=== PATIENT | female | born 1985 | race African-American/Black ===

== ENCOUNTER 2020-06-17 01:44 | Inpatient (IN) | payer SELFPAY ==
[2020-06-17] MEDS ORDERED: Acetaminophen 325 MG TAB PO PRN (03:46)
[2020-06-17] MEDS ORDERED: Ondansetron PF 4 MG/2 ML Vial IVP PRN (03:46)
--- NOTE | 2020-06-17 04:04 | PDOC.HHP ---
Hospitalist HPI - History of Present Illness Altered mental status History of Present Illness: PCP: Unknown The majority of the H&P was taken from ER records and documentation due to the patient's altered mental status. The patient is a 35-year-old female with a past medical history significant for bipolar schizophrenia and methamphetamine abuse that presents to the emergency department via EMS as a transfer from [facility] emergency room for the above complaint. Apparently, the patient was found walking [address] in [place], [place] by the [employer]'s department. The patient was confused. She did not know who she was, where she was going or what she was doing. EMS was called and the patient was brought to the hospital for further evaluation. At the hospital, CT brain negative for any acute process. Chest x-ray is negative for any acute process. The patient UA was consistent with UTI. Urine drug screen showed methamphetamines/amphetamines. Patient was given ciprofloxacin, 1 L normal saline and transferred to our hospital for further evaluation and care. ED Course: [facility]: Presented mildly tachycardic, with NL BP, RR, SPO2, afebrile. CT brain no acute process CXR negative UA nitrite, 4+ bacteria, leukocytes UDS methamphetamines/amphetamines WBC 8.7, hCG negative Medications: Ciprofloxacin 1 L normal saline Hospitalist ROS - Review of Systems ROS unobtainable: due to mental status All other systems reviewed; all pertinent +/- noted in HPI/Subj - Medication Medications: None Allergies: NKDA Hospitalist History - Past Medical History Source: RN notes reviewed, old records Cardiac: reports: no pertinent history Pulmonary: reports: no pertinent history Psych: reports: Addictions (PCP: Amphetamines/methamphetamines), Bipolar, Schizophrenia - Past Surgical History Other Surgical History: Unable to obtain due to patient's altered mental status - Family History Other Family History: Unable to obtain due to patient's altered mental status - Social History Smoking Status: Unknown if ever smoked Drugs: reports: methamphetamine Living Situation: Other (Unknown due to patient's altered mental status) Occupation: Unknown due to patient's altered mental status Activity level: independent ambulation - Exam General Appearance: NAD, awake alert. negative: ill appearing Eye: PERRL ENT: normocephalic atraumatic, dry oral mucosa Neck: supple, no lymphadenopathy Heart: RRR, no murmur, no gallops, no rubs, normal peripheral pulses Respiratory: CTAB, no wheezes, no rales, no ronchi, normal chest expansion, no tachypnea Gastrointestinal: soft, non-tender, normal bowel sounds, no guarding, no rigidity Extremities: no cyanosis, no edema Skin: no rashes Neurological: cranial nerve grossly intact, no focal deficits Musculoskeletal: normal tone, normal strength Psychiatric: normal affect Psychiatric - other findings: Alert, confused, follows commands Hospitalist Results - Radiology Interpretation CT scan - head Status: pending Chest x-ray Status: pending Hospitalist H&P A/P - Problem (1) AMS (altered mental status) Code(s): R41.82 - ALTERED MENTAL STATUS, UNSPECIFIED Status: Acute (2) UTI (urinary tract infection) Status: Acute (3) Hyperthyroidism Code(s): E05.90 - THYROTOXICOSIS, UNSP WITHOUT THYROTOXIC CRISIS OR STORM Status: Acute (4) Methamphetamine abuse Code(s): F15.10 - OTHER STIMULANT ABUSE, UNCOMPLICATED Status: Acute (5) Microcytic anemia Code(s): D50.9 - IRON DEFICIENCY ANEMIA, UNSPECIFIED Status: Acute - Plan Plan: Patient with bipolar/schizophrenia and methamphetamine abuse presents for AMS. UDS positive methamphetamines. UA consistent UTI. #AMS Likely multifactorial. History bipolar/schizophrenia, possibly noncompliant History methamphetamine abuse Upon examination, patient confused but cooperative, NAD CT brain no acute process. UA consistent for UTI. #UTI Given ciprofloxacin at [facility]. Start Rocephin. IV fluids. Send urine for culture. #Hyperthyroidism Heart rate WNL. Check free T4/free T3. #Methamphetamine abuse UDS positive methamphetamines #Microcytic anemia Hemoglobin 11.1, hematocrit 35.4 No overt signs of bleeding. Check iron studies, reticulocyte count, folate/B12. SCDs for DVT prophylaxis. No GI prophylaxis. CODE STATUS full code. Discussed case with attending physician, Dr Burton, agrees with plan of care.
[2020-06-17 05:25] LABS: Reticulocyte Count 1.2 % (0.5-1.5)
[2020-06-17 05:26] LABS: #Eosinphils 0.3 thou/uL (0.0-0.7); #Lymphocytes 2.6 thou/uL (1.20-3.40); #Monocytes 0.6 thou/uL (0.11-0.59); %Basophils 0.3 % (0.0-1.0); %Eosinophils 4.1 % (0.0-10.0); %Lymphocytes 34.3 % (21.0-51.0); %Monocytes 7.9 % (0.0-10.0); %Neutrophils 53.4 % (42.0-75.0); Hemoglobin 9.6 g/dL (12.0-16.0); Mean Corpuscular HGB CONC 31.2 g/dL (32.0-36.0); Mean Corpuscular Hemoglobin 25.8 pg (27.0-31.0); Mean Corpuscular Volume 82.6 fL (78.0-98.0); Mean Platelet Volume 7.9 fL (7.4-10.4); Platelet Count 352 thou/uL (130-400); Red Blood Cell (RBC) Count 3.73 mill/uL (4.20-5.40); White Blood Cell (WBC) Count 7.6 thou/uL (4.8-10.8)
[2020-06-17 05:42] VITALS: BMI 23.8
[2020-06-17 05:53] LABS: Anion Gap 12 mmol/L (10-20); BUN (Urea Nitrogen) 14 mg/dL (7.0-18.7); Calc. Creatinine Clearance 100 mL/min (70-130); Calcium 8.4 mg/dL (7.8-10.44); Carbon Dioxide 24 mmol/L (22-29); Chloride 107 mmol/L (98-107); Glucose 80 mg/dL (70-105); Iron 18 ug/dL (50-170); Iron 23 ug/dL (50-170); Iron Binding Capacity, Total 311 mcg/dL (265-497); Iron Binding Capacity, Total 314 mcg/dL (265-497); Potassium 3.9 mmol/L (3.5-5.1); Sodium 139 mmol/L (136-145)
[2020-06-17] MEDS: cefTRIAXone\\ROCEPHIN 1 GM in Sodium Chloride 0.9% 100 ML IVPB SCH (05:58)
[2020-06-17] MEDS: Sodium Chloride 0.9% 1,000 ML IV SCH ×2 (05:59→19:54)
[2020-06-17 06:18] LABS: Ferritin 11.05 ng/mL (10-291); Free T4 (Free Thyroxine) 1.06 ng/dL (0.70-1.48)
--- NOTE | 2020-06-17 13:11 | PDOC.BPN ---
- Brief Progress Note Encounter Date: 06/17/20 Encounter Time: 13:10 This is a 35-year-old woman who was admitted overnight due to altered mental status. Reportedly she was found by the [employer]'s department wandering down on the [place]. The patient has no recollection on how she got to the hospital. She is awake and alert but not oriented. There is no information about family history. The patient does not know her name. She was found to have methamphetamines in her urine drug screen. She also has evidence of urinary tract infection. She may benefit from formal evaluation by a psychiatrist. This can be arranged when she is medically stable. I have asked case management to consult [facility] to screen this woman. Further recommendations pending.
[2020-06-17 14:22] LABS: SARS-CoV-2 PCR by NAA Not Detected (NotDetected)
[2020-06-18] MEDS: cefTRIAXone\\ROCEPHIN 1 GM in Sodium Chloride 0.9% 100 ML IVPB SCH (05:18)
[2020-06-18] MEDS: Sodium Chloride 0.9% 1,000 ML IV SCH (10:12)
[2020-06-18] MEDS: Ondansetron ODT 4 MG TAB PO PRN ×2 (12:26→19:29)
--- NOTE | 2020-06-18 13:18 | PDOC.HOSPP ---
- Subjective Encounter Date: 06/18/20 Encounter Time: 12:15 Subjective: lethargic, responds to verbal questions says she didn't know she was meth +ve on admission on drug screen (not a regular user?) - Objective Vital Signs & Weight: Vital Signs (12 hours) Temp Pulse Resp BP BP Pulse Ox 06/18/20 08:17 98 06/18/20 07:39 98.2 F 80 16 125/58 L 98 06/18/20 06:38 98 F 90 16 141/73 H 97 Weight Weight 143 lb 4 oz I&O: 06/17/20 06/18/20 06/19/20 06:59 06:59 06:59 Intake Total 250 1814 Balance 250 1814 Result Diagrams: 06/17/20 05:03 06/17/20 05:03 Hospitalist ROS - Medication Medications: Active Medications Generic Name Dose Route Start Last Admin Trade Name Freq PRN Reason Stop Dose Admin Acetaminophen 650 mg 06/17/20 03:46 06/17/20 19:55 Acetaminophen 325 Mg Tab PO 650 mg Q4H PRN Administration Headache/Fever/Mild Pain (1-3) Ondansetron HCl 4 mg 06/17/20 03:46 06/18/20 12:26 Ondansetron Odt 4 Mg Tab PO 4 mg Q6H PRN Administration Nausea/Vomiting Ondansetron HCl 4 mg 06/17/20 03:46 06/18/20 05:16 Ondansetron Pf 4 Mg/2 Ml Vial IVP 4 mg Q6H PRN Administration Nausea/Vomiting Sodium Chloride 10 ml 06/17/20 03:46 06/17/20 05:56 Flush - Normal Saline 10 Ml Syringe IVF 10 ml PRN PRN Administration Saline Flush - Exam Eye: PERRL, anicteric sclera ENT: no oropharyngeal lesions, moist mucosa Neck: supple, no JVD Heart: RRR, no murmur Respiratory: no wheezes, no rales Gastrointestinal: soft, non-tender, non-distended, normal bowel sounds Extremities: no cyanosis, no edema Neurological: cranial nerve grossly intact, no focal deficits Hosp A/P (1) AMS (altered mental status) Code(s): R41.82 - ALTERED MENTAL STATUS, UNSPECIFIED Status: Acute Qualifiers: Altered mental status type: delirium Qualified Code(s): R41.0 - Disorientation, unspecified (2) Methamphetamine abuse Code(s): F15.10 - OTHER STIMULANT ABUSE, UNCOMPLICATED Status: Chronic (3) Microcytic anemia Code(s): D50.9 - IRON DEFICIENCY ANEMIA, UNSPECIFIED Status: Chronic (4) UTI (urinary tract infection) Status: Acute Qualifiers: Urinary tract infection type: acute cystitis Hematuria presence: without hematuria Qualified Code(s): N30.00 - Acute cystitis without hematuria - Plan is slowly returning to her baseline, still a bit lethargic had 3 bm's from am (semisolid per staff), also started to have her monthly periods is eating well per staff cipro for uti to ambulate as tolerated dc plan in am denies drug use, not sure if she is homeless, will await to get more answers in am from her before calling family given the circumstances she was brought here.
[2020-06-18] MEDS: Ciprofloxacin 500 MG TAB PO SCH (19:25)
[2020-06-19] MEDS: Ciprofloxacin 500 MG TAB PO SCH ×2 (05:14→20:28)
[2020-06-19] MEDS: Ondansetron ODT 4 MG TAB PO PRN (05:14)
[2020-06-19 08:14] LABS: #Eosinphils 0.4 thou/uL (0.0-0.7); #Lymphocytes 2.5 thou/uL (1.20-3.40); #Monocytes 0.4 thou/uL (0.11-0.59); %Basophils 0.3 % (0.0-1.0); %Eosinophils 5.5 % (0.0-10.0); %Lymphocytes 34.6 % (21.0-51.0); %Monocytes 5.6 % (0.0-10.0); Hemoglobin 10.5 g/dL (12.0-16.0); Mean Corpuscular HGB CONC 31.6 g/dL (32.0-36.0); Mean Corpuscular Hemoglobin 26.6 pg (27.0-31.0); Platelet Count 379 thou/uL (130-400); RBC Distribution Width 15.8 % (11.5-14.5); Red Blood Cell (RBC) Count 3.94 mill/uL (4.20-5.40); White Blood Cell (WBC) Count 7.3 thou/uL (4.8-10.8)
[2020-06-19 08:27] LABS: ALT (SGPT) 13 U/L (8-55); AST (SGOT) 16 U/L (5-34); Albumin 3.4 g/dL (3.5-5.0); Alkaline Phosphatase 56 U/L (40-110); Anion Gap 12 mmol/L (10-20); BUN (Urea Nitrogen) 7 mg/dL (7.0-18.7); Bilirubin, Total 0.2 mg/dL (0.2-1.2); Calc. Creatinine Clearance 108 mL/min (70-130); Calcium 8.4 mg/dL (7.8-10.44); Carbon Dioxide 20 mmol/L (22-29); Chloride 107 mmol/L (98-107); Globulin 2.9 g/dL (2.4-3.5); Glucose 92 mg/dL (70-105); Protein, Total 6.3 g/dL (6.0-8.3); Sodium 135 mmol/L (136-145)
--- NOTE | 2020-06-19 14:13 | PDOC.HOSPP ---
- Subjective Encounter Date: 06/19/20 Encounter Time: 13:15 Subjective: awake, not in distress thinks she is in [place] and wants me to take to a barbed fencing area says she has no parents or children is ambulating to bathroom, is tolerating oral diet - Objective Vital Signs & Weight: Vital Signs (12 hours) Temp Pulse Resp BP Pulse Ox 06/19/20 11:42 97.5 F L 79 16 117/64 98 06/19/20 08:00 98.4 F 79 16 126/76 97 Weight Weight 143 lb 4 oz I&O: 06/18/20 06/19/20 06/20/20 06:59 06:59 06:59 Intake Total 1814 900 Balance 1814 900 Result Diagrams: 06/19/20 07:42 06/19/20 07:42 Hospitalist ROS - Medication Medications: Active Medications Generic Name Dose Route Start Last Admin Trade Name Freq PRN Reason Stop Dose Admin Acetaminophen 650 mg 06/17/20 03:46 06/17/20 19:55 Acetaminophen 325 Mg Tab PO 650 mg Q4H PRN Administration Headache/Fever/Mild Pain (1-3) Ciprofloxacin 500 mg 06/18/20 20:00 06/19/20 05:14 Ciprofloxacin 500 Mg Tab PO 500 mg 0600,2000 CAL Administration Ondansetron HCl 4 mg 06/17/20 03:46 06/19/20 05:14 Ondansetron Odt 4 Mg Tab PO 4 mg Q6H PRN Administration Nausea/Vomiting Ondansetron HCl 4 mg 06/17/20 03:46 06/18/20 05:16 Ondansetron Pf 4 Mg/2 Ml Vial IVP 4 mg Q6H PRN Administration Nausea/Vomiting Sodium Chloride 10 ml 06/17/20 03:46 06/17/20 05:56 Flush - Normal Saline 10 Ml Syringe IVF 10 ml PRN PRN Administration Saline Flush - Exam General Appearance: awake alert Eye: PERRL, anicteric sclera ENT: no oropharyngeal lesions, moist mucosa Neck: supple, no JVD Heart: RRR, no murmur Respiratory: no wheezes, no rales Gastrointestinal: soft, non-tender, non-distended, normal bowel sounds Extremities: no cyanosis, no edema Neurological: cranial nerve grossly intact, no focal deficits Psychiatric - other findings: has delusions+ Hosp A/P (1) Methamphetamine abuse Code(s): F15.10 - OTHER STIMULANT ABUSE, UNCOMPLICATED Status: Chronic (2) Microcytic anemia Code(s): D50.9 - IRON DEFICIENCY ANEMIA, UNSPECIFIED Status: Chronic (3) UTI (urinary tract infection) Status: Acute Qualifiers: Urinary tract infection type: acute cystitis Hematuria presence: without hematuria Qualified Code(s): N30.00 - Acute cystitis without hematuria (4) Acute psychosis Code(s): F23 - BRIEF PSYCHOTIC DISORDER Status: Acute (5) Schizoaffective disorder Code(s): F25.9 - SCHIZOAFFECTIVE DISORDER, UNSPECIFIED Status: Chronic Qualifiers: Schizoaffective disorder type: bipolar Qualified Code(s): F25.0 - Schizoaffective disorder, bipolar type (6) Bipolar disorder Code(s): F31.9 - BIPOLAR DISORDER, UNSPECIFIED Status: Chronic Qualifiers: Active/Remission status: remission status unspecified Qualified Code(s): F31.9 - Bipolar disorder, unspecified - Plan has delusions, d/w mother over phone who lives in the same town as her in [place], pt lives in a trailer alone, she had 5 children but none are with her and mom did not divulge where they are, she uses meth often, is not compliant with psych meds and she uses [facility] in [place], she used to follow with [facility] there per mom. I have given brief updates to her and she is aware patient may go to inpt psychiatric unit for optimization of meds for her schizoaffective disorder with current delusions. is eating well per staff cipro for uti to ambulate as tolerated may dc anytime to inpt pschiatric unit if accepted. [facility] has evaluated patient and have recommended inpt pscy unit stay
[2020-06-19] MEDS ORDERED: Ziprasidone 20 MG CAP PO SCH (14:30)
[2020-06-20] MEDS: Ciprofloxacin 500 MG TAB PO SCH ×2 (05:21→21:30)
[2020-06-20] MEDS: Benztropine 1 MG TAB PO SCH (08:31)
[2020-06-20] MEDS: Ziprasidone 20 MG CAP PO SCH (08:32)
--- NOTE | 2020-06-20 14:00 | PDOC.HOSPP ---
- Subjective Encounter Date: 06/20/20 Encounter Time: 12:00 Subjective: no complaints, knows she is in the hospital this am but doesn't know the place she cant tell me where she lives, who her mom is, children etc is walking to restroom and back, tolerating oral diet - Objective Vital Signs & Weight: Vital Signs (12 hours) Temp Pulse Resp BP Pulse Ox 06/20/20 08:12 98.0 F 76 16 122/66 98 Weight Weight 143 lb 4 oz I&O: 06/19/20 06/20/20 06/21/20 06:59 06:59 06:59 Intake Total 900 600 850 Balance 900 600 850 Result Diagrams: 06/19/20 07:42 06/19/20 07:42 Hospitalist ROS - Medication Medications: Active Medications Generic Name Dose Route Start Last Admin Trade Name Freq PRN Reason Stop Dose Admin Acetaminophen 650 mg 06/17/20 03:46 06/17/20 19:55 Acetaminophen 325 Mg Tab PO 650 mg Q4H PRN Administration Headache/Fever/Mild Pain (1-3) Benztropine Mesylate 1 mg 06/20/20 09:00 06/20/20 08:31 Benztropine 1 Mg Tab PO 1 mg DAILY THA Administration Ciprofloxacin 500 mg 06/18/20 20:00 06/20/20 05:21 Ciprofloxacin 500 Mg Tab PO 500 mg 06,1999 THA Administration Ondansetron HCl 4 mg 06/17/20 03:46 06/19/20 05:14 Ondansetron Odt 4 Mg Tab PO 4 mg Q6H PRN Administration Nausea/Vomiting Ondansetron HCl 4 mg 06/17/20 03:46 06/18/20 05:16 Ondansetron Pf 4 Mg/2 Ml Vial IVP 4 mg Q6H PRN Administration Nausea/Vomiting Sodium Chloride 10 ml 06/17/20 03:46 06/17/20 05:56 Flush - Normal Saline 10 Ml Syringe IVF 10 ml PRN PRN Administration Saline Flush Ziprasidone 20 mg 06/20/20 08:00 06/20/20 08:32 Ziprasidone 20 Mg Cap PO 20 mg QAM-WM THA Administration - Exam General Appearance: awake alert Eye: PERRL, anicteric sclera ENT: no oropharyngeal lesions, moist mucosa Neck: supple, no JVD Heart: RRR, no murmur Respiratory: no wheezes, no rales, no ronchi Gastrointestinal: soft, non-tender, non-distended, normal bowel sounds Extremities: no cyanosis, no edema Neurological: cranial nerve grossly intact, no focal deficits Hosp A/P (1) Acute psychosis Code(s): F23 - BRIEF PSYCHOTIC DISORDER Status: Acute (2) Methamphetamine abuse Code(s): F15.10 - OTHER STIMULANT ABUSE, UNCOMPLICATED Status: Chronic (3) Microcytic anemia Code(s): D50.9 - IRON DEFICIENCY ANEMIA, UNSPECIFIED Status: Chronic (4) UTI (urinary tract infection) Status: Acute Qualifiers: Urinary tract infection type: acute cystitis Hematuria presence: without hematuria Qualified Code(s): N30.00 - Acute cystitis without hematuria (5) Schizoaffective disorder Code(s): F25.9 - SCHIZOAFFECTIVE DISORDER, UNSPECIFIED Status: Chronic Qualifiers: Schizoaffective disorder type: bipolar Qualified Code(s): F25.0 - Tha izoaffective disorder, bipolar type (6) Bipolar disorder Code(s): F31.9 - BIPOLAR DISORDER, UNSPECIFIED Status: Chronic Qualifiers: Active/Remission status: remission status unspecified Qualified Code(s): F31.9 - Bipolar disorder, unspecified - Plan has delusions, d/w mother over phone who lives in the same town as her in [place], pt lives in a trailer alone, she had 5 children but none are with her and mom did not divulge where they are, she uses meth often, is not compliant with psych meds and she uses [facility] in [place], she used to follow with [facility] there per mom. I have given brief updates to her and she is aware patient may go to inpt psychiatric unit for optimization of meds for her schizoaffective disorder with current delusions on 06/19/2020. is eating well per staff cipro for uti, started on geodon from 06/19/2020 along with cogentin, her delusions have come down a bit but is not aware of her family or children or home whereabouts. to ambulate as tolerated may dc anytime to inpt pschiatric unit if accepted. [facility] has evaluated patient and have recommended inpt pscyh unit stay
[2020-06-20] MEDS: Ferrous Sulfate 325 MG TAB PO SCH (19:16)
[2020-06-20] MEDS ORDERED: Lorazepam 2 MG/ML VIAL SLOW IVP PRN (19:32)
[2020-06-21] MEDS ORDERED: Loperamide HCl 2 MG CAP PO SCH (00:30)
[2020-06-21] MEDS: Ciprofloxacin 500 MG TAB PO SCH (06:16)
[2020-06-21] MEDS: Benztropine 1 MG TAB PO SCH (08:18)
[2020-06-21] MEDS: Ziprasidone 20 MG CAP PO SCH (08:19)
[2020-06-21] MEDS: Ferrous Sulfate 325 MG TAB PO SCH ×2 (08:19→17:54)
[2020-06-21 08:23] VITALS: BP 116/55; TEMP 98
[2020-06-21] MEDS ORDERED: Folic Acid 1 MG TAB PO SCH (09:00)
[2020-06-21] MEDS ORDERED: Multivitamin W/ Minerals 1 TAB PO SCH (09:00)
--- NOTE | 2020-06-21 14:13 | PDOC.HOSPP ---
- Subjective Encounter Date: 06/21/20 Encounter Time: 12:30 Subjective: is oriented well this am says she used to see with [facility] (last seen her >1 yr back), was on 4 meds including gabapentin, tegretol and 2 more that she cant remember (off meds from 1 yr, they made her put on weight so she dc'd) is ambulating in room had loose stool yesterday but no nausea knows she is in [facility], her home county and town, 5 children with their dad, mom lives near her in [place] etc. she wants to go home she denies using drugs - Objective Vital Signs & Weight: Vital Signs (12 hours) Temp Pulse BP Pulse Ox 06/21/20 08:00 98.0 F 78 116/55 L 99 Weight Weight 143 lb 4 oz I&O: 06/20/20 06/21/20 06/22/20 06:59 06:59 06:59 Intake Total 600 1970 Balance 600 1969 Result Diagrams: 06/19/20 07:42 06/19/20 07:42 Hospitalist ROS - Medication Medications: Active Medications Generic Name Dose Route Start Last Admin Trade Name Freq PRN Reason Stop Dose Admin Acetaminophen 650 mg 06/17/20 03:46 06/17/20 19:55 Acetaminophen 325 Mg Tab PO 650 mg Q4H PRN Administration Headache/Fever/Mild Pain (1-3) Benztropine Mesylate 1 mg 06/20/20 09:00 06/21/20 08:18 Benztropine 1 Mg Tab PO 1 mg DAILY CAL Administration Ciprofloxacin 500 mg 06/18/20 20:00 06/21/20 06:16 Ciprofloxacin 500 Mg Tab PO 500 mg 599,1999 CAL Administration Ferrous Sulfate 325 mg 06/20/20 17:00 06/21/20 08:19 Ferrous Sulfate 325 Mg Tab PO 325 mg BID- CAL Administration Folic Acid 1 mg 06/21/20 09:00 06/21/20 08:18 Folic Acid 1 Mg Tab PO 1 mg DAILY CAL Administration Iron/Minerals/Multivitamins 1 tab 06/21/20 09:00 06/21/20 08:19 Multivitamin W/ Minerals 1 Tab PO 1 tab DAILY CAL Administration Ondansetron HCl 4 mg 06/17/20 03:46 06/19/20 05:14 Ondansetron Odt 4 Mg Tab PO 4 mg Q6H PRN Administration Nausea/Vomiting Ondansetron HCl 4 mg 06/17/20 03:46 06/18/20 05:16 Ondansetron Pf 4 Mg/2 Ml Vial IVP 4 mg Q6H PRN Administration Nausea/Vomiting Sodium Chloride 10 ml 06/17/20 03:46 06/17/20 05:56 Flush - Normal Saline 10 Ml Syringe IVF 10 ml PRN PRN Administration Saline Flush Ziprasidone 20 mg 06/20/20 08:00 06/21/20 08:19 Ziprasidone 20 Mg Cap PO 20 mg QAM-WM [facility] Administration Hospitalist Exam Vitals: Vital Signs (12 hours) Temp Pulse BP Pulse Ox 06/21/20 08:00 98.0 F 78 116/55 L 99 Weight Weight 143 lb 4 oz General Appearance: awake alert Eye: PERRL, anicteric sclera ENT: no oropharyngeal lesions, moist mucosa Neck: supple, no JVD Heart: RRR, no murmur Respiratory: no wheezes, no rales Gastrointestinal: soft, non-tender, non-distended, normal bowel sounds Extremities: no cyanosis, no edema Neurological: cranial nerve grossly intact, no focal deficits Hosp A/P (1) Acute psychosis Code(s): F23 - BRIEF PSYCHOTIC DISORDER Status: Resolved (2) Methamphetamine abuse Code(s): F15.10 - OTHER STIMULANT ABUSE, UNCOMPLICATED Status: Chronic (3) Microcytic anemia Code(s): D50.9 - IRON DEFICIENCY ANEMIA, UNSPECIFIED Status: Chronic (4) UTI (urinary tract infection) Status: Acute Qualifiers: Urinary tract infection type: acute cystitis Hematuria presence: without hematuria Qualified Code(s): N30.00 - Acute cystitis without hematuria (5) Schizoaffective disorder Code(s): F25.9 - SCHIZOAFFECTIVE DISORDER, UNSPECIFIED Status: Chronic Qualifiers: Schizoaffective disorder type: bipolar Qualified Code(s): F25.0 - Schizoaffective disorder, bipolar type (6) Bipolar disorder Code(s): F31.9 - BIPOLAR DISORDER, UNSPECIFIED Status: Chronic Qualifiers: Active/Remission status: remission status unspecified Qualified Code(s): F31.9 - Bipolar disorder, unspecified - Plan this morning she is oriented, not suicidal or homicidal, wants to go home, will ask [facility] to re-evaluate and see if she can be dc'd home with a safety plan. is not compliant with psych meds and she uses [facility] pharmacy in [place], she used to follow with [facility] there per mom. I have given brief updates to her and she is aware patient may go to inpt psychiatric unit for optimization of meds for her schizoaffective disorder. is eating well per staff sita for uti, started on geodon from 06/19/2020 along with cogentin. to ambulate as tolerated may dc anytime to inpt pschiatric unit if accepted or to home if cleared by MH.
--- NOTE | 2020-06-22 14:54 | DIS ---
DATE OF ADMISSION: 06/17/2020 DATE OF DISCHARGE: 06/21/2020 DISCHARGE DISPOSITION: Home with close [facility] followup. PRIMARY DISCHARGE DIAGNOSIS: Brief episode of acute psychosis secondary to underlying schizoaffective disorder, not on any medication, and methamphetamine usage. SECONDARY DISCHARGE DIAGNOSES: Urinary tract infection; iron deficiency anemia; schizoaffective disorder, bipolar disorder, not on any medication for almost a year now. PROCEDURES DONE DURING HOSPITALIZATION: CT brain without contrast on admission showed no acute intracranial abnormality. Chest x-ray done showed no active intrathoracic abnormality. H and H 10 and 33, MCV 84, platelet count 379. BUN 7, creatinine 0.7. Serum iron 18, ferritin 11. Folic acid 6.40. Free T4 1.0, free T3 of 3.0. Urine test negative. Urine drug screen was positive for amphetamine and methamphetamines. Plasma alcohol less than 10. COVID-19 PCR was not detected on 06/17/2020. DISCHARGE MEDICATIONS: 1. Ciprofloxacin 500 mg twice daily for another 5 days. 2. Cogentin 1 mg p.o. daily. 3. Ferrous sulfate 325 mg p.o. daily. 4. Folic acid 1 mg p.o. daily. 5. Geodon 20 mg p.o. daily. 6. Multivitamin 1 tablet once daily. ALLERGIES: NO KNOWN DRUG ALLERGIES. DISCHARGE PLAN: The patient to follow up with [facility] and her primary psychiatrist, Dr. Kline, in 1 to 2 weeks. BRIEF COURSE DURING HOSPITALIZATION: The patient initially got admitted on the after she was brought to emergency room by [employer] as she was walking on the [place] [address] in [place]. Her initial urine drug screen revealed methamphetamine and amphetamines. The patient has known history of schizoaffective disorder and was not on any medication for almost a year now. In view of above-mentioned factors, the patient had brief acute psychosis with delusions. She was also found to have had urinary tract infection. The patient was placed on IV antibiotics and was gently hydrated. After nearly 36 hours, the patient started to come around. [facility] consultation was requested and the initial plan was to send her to inpatient psychiatric unit. As the patient continued to improve and became cognitively improved to her baseline, she was sent home with safety plan by [facility]. She was placed on Geodon 20 mg daily along with Cogentin. Ms. Chamberlain was also found to have had iron deficiency anemia with folic acid deficiency as well, both of which have been prescribed at the time of discharge. Prior to discharge, she is ambulating and tolerating oral solid diet. Her delusions have completely resolved. She is wanting to go home as well. Please see a [id number] documentation for the day of discharge on [place]. Job ID: [id number]
== END 2020-06-21 18:14 | disposition home or self-care (01) | DRG 885 ==
LOC: ERS 01:44 → OBSVTOIN 03:38 → ONC 03:38 → INTOOBSV 03:38
PROVIDERS: ADMIT Student in an Organized Health Care Education/Training Program; ATTEND Internal Medicine
DX: F25.9 Schizoaffective disorder, unspecified (principal); N39.0 Urinary tract infection, site not specified; Z20.822 Contact with and (suspected) exposure to COVID-19; D50.9 Iron deficiency anemia, unspecified; F31.9 Bipolar disorder, unspecified; E53.8 Deficiency of other specified B group vitamins; F15.159 Other stimulant abuse with stimulant-induced psychotic disorder, unspecified; E05.90 Thyrotoxicosis, unspecified without thyrotoxic crisis or storm; Z91.14 Patient's other noncompliance with medication regimen
CPT/HCPCS: 36415; 80048; 80053; 82607; 82728; 82746; 83540; 83550; 84439; 84481; 85025; 85046; 87635; 96365; 99285; G0378; J0696; J2405; J3490; Q0162; U0003; U0005

== ENCOUNTER 2025-01-06 20:09 | Emergency (ER) | payer BC, SELFPAY ==
[2025-01-06 21:11] LABS: #Basophils 0.03 10x3/uL (0.0-0.2); #Eosinophils 0.35 10x3/uL (0.0-0.7); #Monocytes 0.59 10x3/uL (0.11-0.59); #Neutrophils 3.02 10x3/uL (1.40-6.50); %Basophils 0.5 % (0.0-1.0); %Eosinophils 5.7 % (0.0-10.0); %Lymphocytes 34.4 % (21.0-51.0); %Monocytes 9.7 % (0.0-10.0); %Neutrophils 49.5 % (42.0-75.0); Hematocrit 36.4 % (36.0-47.0); Hemoglobin 11.5 g/dL (12.0-16.0); Mean Corpuscular Hemoglobin 26.6 pg (27.0-31.0); Mean Corpuscular Volume 84.1 fL (78.0-98.0); Platelet Count 302 10x3/uL (130-400); Red Blood Cell (RBC) Count 4.33 mill/uL (4.20-5.40); White Blood Cell (WBC) Count 6.10 10x3/uL (4.8-10.8)
[2025-01-06] MEDS ORDERED: Amoxicillin/Potassium Clav 875 MG TAB ONE (21:22)
[2025-01-06 21:52] LABS: BHCG - Serum Negative (NEGATIVE); Pregs Control Background? CLEAR/WHITE (CLR/WHITE); Pregs Control Bar Appear? YES (CONTROL BAR)
[2025-01-06 22:03] LABS: ALT (SGPT) 30 U/L (Less than 34); AST (SGOT) 36 U/L (11-34); Albumin 3.8 g/dL (3.1-4.5); Alkaline Phosphatase 65 U/L (40-110); Anion Gap 11 mmol/L (10-20); BUN (Urea Nitrogen) 14 mg/dL (7.0-18.7); Bilirubin, Total 0.2 mg/dL (0.3-1.2); Calc. Creatinine Clearance 0 mL/min (70-130); Calcium 9.1 mg/dL (7.8-10.44); Carbon Dioxide 25 mmol/L (22-29); Chloride 104 mmol/L (98-107); Globulin 3.9 g/dL (2.4-3.5); Glucose 83 mg/dL (70-105); Potassium 4.3 mmol/L (3.5-5.1); Sodium 136 mmol/L (136-145)
== END 2025-01-06 22:15 | disposition home or self-care (01) ==
LOC: ERS 20:09
DX: J06.9 Acute upper respiratory infection, unspecified (principal); K04.7 Periapical abscess without sinus; K02.9 Dental caries, unspecified
CPT/HCPCS: 36415; 71045; 80053; 84703; 85025; 87428; 96372; J2270